=== PATIENT | male | born 1985 | race Caucasian/White ===

== ENCOUNTER 2025-10-24 02:20 | Emergency (ER) | payer OTHER, SELFPAY ==
[2025-10-24] VITALS (11 sets, daily range): BP systolic 104–112; BP diastolic 53–73; PULSE 59–72; RESP 11–22; O2SAT 93–100
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
[2025-10-24 02:40] LABS: Add Manual Diff / Slide Review NO; Hematocrit 41.9 % (41-53); Hemoglobin 14.5 g/dL (13.5-17.5); Lymphocytes Absolute Auto 3800 /uL (1100-4500); Mean Corpuscular HGB Conc 34.5 % (30-36); Mean Corpuscular Hemoglobin 29.6 PG (26-34); Mean Corpuscular Volume 85.7 fL (80-100); Platelet Count 401 X10^3/uL (150-400)
[2025-10-24 02:46] LABS: Lactate (Lactic Acid) 2.3 mmol/L (0.7-2.1)
[2025-10-24 02:47] LABS: Alanine Aminotransferase 22 IU/L (<50); Albumin 4.6 g/dL (3.5-5.0); Albumin Globulin Ratio 1.4 (1.0-2.8); Alkaline Phosphatase 63 U/L (38-126); Blood Urea Nitrogen 14 mg/dL (9-20); Calcium 9.0 mg/dL (8.4-10.2); Carbon Dioxide 24 mmol/L (22-32); Chloride 106 mmol/L (98-107); Estimated Glomerular Filt Rate > 60 mL/min (>60); Globulin 3.3 g/dL (1.7-4.1); Glucose 106 mg/dL (70-99); HEMOLYSIS < 15 (0-50); Potassium 3.7 mmol/L (3.4-5.1); Sodium 143 mmol/L (137-145); Total Protein 7.9 g/dL (6.3-8.2)
[2025-10-24] MEDS: SODIUM CHLORIDE 0.9% 1,000 ML 1000 ML IV (03:14)
--- NOTE | 2025-10-24 03:15 | PC.NURSE ---
pt states still has some pain in right leg but declines any further pain medication states it makes him emotional,
[2025-10-24 04:08] LABS: Reflexed Lactate in 2 Hours Y
--- NOTE | 2025-10-24 04:16 | PC.NURSE ---
pressure dressing removed from leg, wound cotinues to bleed, redressed with abd pad and gauze and knee immobilizer placed on pt
--- NOTE | 2025-10-24 04:17 | PC.NURSE ---
pt refusing to keep monitor on pulling off the bp cuff and sat monitor
== END 2025-10-24 05:19 | disposition short-term general hospital (02) ==
PROVIDERS: Emergency Provider Family Medicine
DX: S72.491A Other fracture of lower end of right femur, initial encounter for closed fracture (principal); W34.00XA Accidental discharge from unspecified firearms or gun, initial encounter
CPT/HCPCS: 73560; 73701; 80053; 83605; 85025; 86850; 86900; 86901; 96361; 96365; 96375; 99284; J0689; J1171; J7030; Q9967

== ENCOUNTER 2025-11-02 23:24 | Emergency (ER) | payer OTHER, SELFPAY ==
[2025-11-02 23:41] VITALS: BP 115/68; PULSE 97; RESP 16; TEMP 36.7; O2SAT 97; BMI 29.8
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
[2025-11-03 00:16] LABS: Add Manual Diff / Slide Review NO; Hematocrit 26.8 % (41-53); Hemoglobin 9.6 g/dL (13.5-17.5); Lymphocytes Absolute Auto 1500 /uL (1100-4500); Mean Corpuscular HGB Conc 35.9 % (30-36); Mean Corpuscular Hemoglobin 30.8 PG (26-34); Mean Corpuscular Volume 85.8 fL (80-100); Platelet Count 480 X10^3/uL (150-400)
[2025-11-03] MEDS: SODIUM CHLORIDE 0.9% 1,000 ML 1000 ML IV (00:20)
[2025-11-03 00:28] LABS: Alanine Aminotransferase 72 IU/L (<50); Albumin 4.2 g/dL (3.5-5.0); Albumin Globulin Ratio 1.2 (1.0-2.8); Alkaline Phosphatase 71 U/L (38-126); Blood Urea Nitrogen 16 mg/dL (9-20); Calcium 9.3 mg/dL (8.4-10.2); Carbon Dioxide 25 mmol/L (22-32); Chloride 102 mmol/L (98-107); Estimated Glomerular Filt Rate > 60 mL/min (>60); Globulin 3.4 g/dL (1.7-4.1); Glucose 130 mg/dL (70-99); HEMOLYSIS < 15 (0-50); Magnesium 2.0 mg/dL (1.6-2.3); Potassium 4.0 mmol/L (3.4-5.1); Sodium 136 mmol/L (137-145); Total Protein 7.6 g/dL (6.3-8.2)
[2025-11-03] MEDS: ACETAMINOPHEN 325 MG TABLET 650 MG PO (01:05)
[2025-11-03 02:25] VITALS: BP 136/72; PULSE 87; RESP 17; O2SAT 97
--- NOTE | 2025-11-03 02:25 | PC.NURSE ---
Nonadhesive pad applied to R leg surgical incision and secured with janet bandage per pt request.
== END 2025-11-03 02:10 | disposition home or self-care (01) ==
PROVIDERS: Emergency Provider Student in an Organized Health Care Education/Training Program
DX: G89.18 Other acute postprocedural pain (principal); S91.031D Puncture wound without foreign body, right ankle, subsequent encounter; W34.00XD Accidental discharge from unspecified firearms or gun, subsequent encounter
CPT/HCPCS: 73562; 73610; 80053; 83735; 85025; 96360; 99284; J7030